=== PATIENT | male | born 1980 | race Caucasian/White ===

== ENCOUNTER 2017-11-03 13:13 | Emergency (ER) | payer BC, SELFPAY ==
[2017-11-03 13:14] VITALS: BP 151/86; PULSE 71; RESP 16; TEMP 37.3; O2SAT 97; BMI 32.3
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
== END 2017-11-03 15:06 | disposition home or self-care (01) ==
PROVIDERS: Emergency Provider Emergency Medicine
DX: S06.0X0A Concussion without loss of consciousness, initial encounter (principal); V84.0XXA Driver of special agricultural vehicle injured in traffic accident, initial encounter; Y93.89 Activity, other specified; Y92.9 Unspecified place or not applicable
CPT/HCPCS: 70450; 99282

== ENCOUNTER → 2017-12-12 14:04 | Outpatient (CLI) | payer BC, SELFPAY ==
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
== END ==
DX: S06.0X0A Concussion without loss of consciousness, initial encounter (principal)
CPT/HCPCS: 70551